=== PATIENT | male | born 1970 | race Caucasian/White ===

== ENCOUNTER 2020-01-24 05:28 | Outpatient (RCR) | payer BC ==
[~2020-01-24] VITALS: Ht 182 cm; Wt 88.6 kg
== END 2020-01-24 10:42 | disposition home or self-care (01) ==
LOC: PREOP 05:28
PROVIDERS: ATTEND Internal Medicine
DX: Z01.812 Encounter for preprocedural laboratory examination (principal); Z12.11 Encounter for screening for malignant neoplasm of colon; Z20.828 Contact with and (suspected) exposure to other viral communicable diseases; Z83.79 Family history of other diseases of the digestive system
CPT/HCPCS: 87635

== ENCOUNTER 2020-01-26 07:22 | Day surgery (SDC) | payer BC ==
[2020-01-26] VITALS (12 sets, daily range): BP systolic 112–126; BP diastolic 60–79
[~2020-01-26] VITALS: Ht 182 cm; Wt 88.6 kg
[2020-01-26] MEDS ORDERED: D5 LR IV SOLUTION 1,000 ML IV ONE (07:35)
[2020-01-26] MEDS ORDERED: D5 LR IV SOLUTION 1,000 ML IV STA (07:43)
[2020-01-26] MEDS ORDERED: fentaNYL INJECTION 100 MCG/2 ML AMP IVP ONE (07:45)
[2020-01-26] MEDS ORDERED: MIDAZOLAM 5 MG/5 ML (VERSED) VIAL IV ONE (07:45)
[2020-01-26] MEDS ORDERED: LIDOCAINE JELLY 2% 6 ML SYRINGE MM PRN (07:45)
[2020-01-26] MEDS ORDERED: LIDOCAINE JELLY 2% 6 ML SYRINGE ONE (08:12)
[2020-01-26] MEDS ORDERED: fentaNYL INJECTION 100 MCG/2 ML AMP ONE ×2 (08:13→08:32)
[2020-01-26] MEDS ORDERED: MIDAZOLAM 5 MG/5 ML (VERSED) VIAL ONE ×2 (08:13→08:32)
--- NOTE | 2020-01-26 08:16 | Pre-Op Note & Conscious Sedat ---
Pre-Operative Progress Note H&P Reviewed The H&P was reviewed, patient examined and no changes noted. Date H&P Reviewed: Jan 26, 2020 Time H&P Reviewed: 08:00 Conscious Sedation Pre-Proced ASA Score 2 For ASA 3 and 4: Consider anesthesia and medical clearance. Also, for patients with a history of failed moderate sedation consider anesthesia. Airway Lungs Heart ASA score ASA 1: a normal healthy patient ASA 2: a patient with a mild systemic disease (mid diabetes, controlled hypertension, obesity ASA 3: a patient with a severe systemic disease that limits activity (angina, COPD, prior Myocardial infarction) ASA 4: a patient with an incapacitating disease that is a constant threat to life (CHF, renal failure) ASA 5: a moribund patient not expected to survive 24 hrs. (ruptured aneurysm) ASA 6: a declared brain- patient whose organs are being harvested. For emergent operations, add the letter E after the classification Mallampati Classification Grade 1 Sedation Plan Analgesia, Amnesia, Plan communicated to team members, Discussed options with patient/fam, Discussed risks with patient/fam The patient is an appropriate candidate to undergo the planned procedure, sedation, and anesthesia. The patient immediately re-assessed prior to indication. SANDY BLEDSOE MD Jan 26, 2020 08:16
--- NOTE | 2020-01-26 19:13 | OPERATIVE REPORT ---
DATE OF SERVICE: COLONOSCOPY SUMMARY INDICATION FOR PROCEDURE: Screening colonoscopy. DESCRIPTION OF PROCEDURE: The patient was placed in the left lateral decubitus position. Prior to undergoing colonoscopy, digital rectal evaluation was performed. Anal sphincter tone was normal and the perianal reflexes intact. The prostate was anodular, nontender and normal in size to digital evaluation. No abnormalities were noted on digital inspection of the anal canal or distal rectal vault. The colonoscope was then inserted into the rectum and under direct visualization advanced to the cecum. The terminal ileum was intubated as well and distal 5 to 10 cm of terminal ileum were inspected. Careful inspection was made as the colonoscope was withdrawn. The quality of the prep was good. FINDINGS: There was no evidence for internal or external hemorrhoids and the rectum, sigmoid colon, descending colon, splenic flexure and transverse colon were unremarkable. One diminutive 1 mm sessile polyp was noted at the hepatic flexure, was biopsied and ablated. There was no subsequent blood loss. The remainder of the ascending colon, cecum and distal terminal ileum were unremarkable to visual inspection. Photographs were obtained. ASSESSMENT: 1. One diminutive 1 mm sessile polyp was removed via hot forceps from the hepatic flexure. This is an otherwise normal colonoscopy to the cecum. The patient did have an irritable bowel type response to air insufflation and colonic manipulation. IBS issues were discussed. Dietary history was taken and fiber intake is low. He had tried FiberCon in the past, which he thought led to increased gas. We will try half a tablespoon of Citrucel daily for the first several weeks and then see about increasing to full tablespoon daily and eating oatmeal for breakfast, which he likes. 2. The patient did have obstructive breathing during the procedure. This was discussed with his who states that it has gotten worse over the past 2 to 3 years with increased snoring. We discussed in the presence of his my concerns about sleep apnea. The patient will return to discuss setting up home sleep study after questioning. An additional 15 minutes of care time was spent in discussing irritable bowel syndrome as well as obstructive sleep apnea. Job ID: [id number] DocumentID: [id number] Dictated Date: 01/26/2020 10:32:14 Compliance Quality Performance Analyst Date: 01/26/2020 19:11:00 Dictated By: SANDY BLEDSOE MD
--- NOTE | 2020-02-06 10:31 | HISTORY AND PHYSICAL ---
DATE OF SERVICE: COLONOSCOPY HISTORY AND PHYSICAL HISTORY OF PRESENT ILLNESS: The patient is a 49-year-old white male presenting for his first office visit on 01/04/2020. He reports over the past 1 to 2 months, he has had a sensation of incomplete emptying with constipation. Previously, he has been regular and he denies any past history of diarrhea, constipation or diagnosis of irritable bowel syndrome. He has noted no blood or bright red blood per rectum. He has had no previous endoscopic or any other form of bowel evaluation. He believes that he is put on 5 to 10 pounds of weight over the past year. He is not aware of any weight loss. He will occasionally have some left lower quadrant cramping. Denies chills, fever or night sweats. He is currently taking no medication prescription or [id number] medication. The patient does report questionable past history of hypothyroidism, it was based on symptoms. He did take thyroid supplementation for several years, but then it was discontinued as I recall over 10 years ago. PAST SURGICAL HISTORY: He has no past surgical history. No previous hospitalization. ALLERGIES: He reports no known drug allergies. 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 He has no past smoking history, although he does chew some tobacco. He reports on average two alcoholic beverages per week with no history of heavy drinking. FAMILY HISTORY: Father is living at the age of 68 with no health problems. Mother living at the age of 68, has a history of glaucoma. Has a paternal grandfather, who had a heart attack in his 70s as well as maternal grandfather, heart attack in his 60s or 70s. He has one brother with a history of colitis with no known family history for any GI tract malignancy. PHYSICAL EXAMINATION: GENERAL: Reveals a well-appearing white male in no acute distress. VITAL SIGNS: Weight 195 pounds, height is 6 feet tall, blood pressure 120/82. HEENT: Unremarkable. Mallampati 2 pharyngeal configuration. No erythema, exudate or sores noted. No evidence for leukoplakia. NECK: Revealed no JVD, adenopathy or bruits. CHEST: Clear to auscultation. CARDIOVASCULAR: Reveals a regular rate and rhythm without murmur, S3 or S4. ABDOMEN: Soft, supple without mass or organomegaly. He did have some mild left mid and left lower quadrant discomfort to palpation with no rebound or guarding. No bruits are noted. EXTREMITIES: Reveal no cyanosis, clubbing or edema. SKIN: Evaluation revealed no suspicious nevi. ASSESSMENT AND PLAN: The patient is set up for screening colonoscopy. Prep instructions and Suprep kit were given and questions were answered. No other significant abnormalities noted on wellness evaluation. We did send off a TSH, CBC, chemistry panel and lipid panel for screening purposes and also due to his past history of questionable hypothyroidism. The patient will be getting a flu shot through the [facility] next month. Job ID: [id number] DocumentID: [id number] Dictated Date: 01/05/2020 16:33:04 Cash Grain Farmer Date: 01/05/2020 17:16:01 Dictated By: SANDY BLEDSOE MD <Dictated by SANDY BLEDSOE MD> <Electronically signed by SANDY BLEDSOE MD> 01/12/20 [id number] MTDD
== END 2020-01-26 10:10 | disposition home or self-care (01) ==
LOC: ENDO 07:22
PROVIDERS: ATTEND Internal Medicine
DX: Z12.11 Encounter for screening for malignant neoplasm of colon (principal); K63.5 Polyp of colon; Z83.511 Family history of glaucoma